=== PATIENT | male | born 1995 | race American Indian/Alaskan Native ===

== ENCOUNTER 2018-01-11 21:19 | Emergency (ER) | payer SELFPAY ==
[2018-01-11] MEDS ORDERED: MOTRIN PO ONE ×2 (21:47→21:48)
[2018-01-11 22:03] LABS: BUN/Creatinine Ratio 13; Blood Urea Nitrogen 9 mg/dL (9-20); Calcium 8.9 mg/dL (8.4-10.2); Hemolysis Index 14
[2018-01-11 22:07] LABS: Hematocrit 41.8 % (35.5-45.6); Hemoglobin 14.2 gm/dl (11.8-15.2); Mean Corpuscular HGB Conc 34 % (32-34); Mean Corpuscular Hemoglobin 33 pg (28-32); Mean Corpuscular Volume 96 fl (84-94); Platelet Count 283 K/mm3 (140-440); Red Blood Count 4.36 M/mm3 (3.65-5.03); Red Cell Distribution Width 12.3 % (13.2-15.2)
[2018-01-11 22:20] LABS: Bilirubin,Urine NEG (Negative); Blood,Urine NEG (Negative); Color,Urine Yellow (Yellow); Mucus,Urine 2+ /HPF
--- NOTE | 2018-01-11 23:37 | Ultrasound Report ---
FINAL REPORT PROCEDURE: US TESTICULAR DOPPLER COMP TECHNIQUE: Real-time gonzalez-scale and color flow Doppler sonography in multiple planes of the scrotum, testicles, and epididymes was performed. Velocity spectral waveform analysis Doppler imaging of the arterial inflow and venous outflow of the testicles was performed with image documentation. CPT 27577 and 42891 HISTORY: swelling and severe pain COMPARISON: No prior studies are available for comparison. FINDINGS: RIGHT TESTICLE: Size: 4.4 x 2.2 x 3.3 cm . Appearance: Normal size and echotexture. . Doppler flow: Within normal limits Right epididymis: Normal size and echotexture . Hydrocele: None . LEFT TESTICLE Size: 4.9 x 3.3 x 3.3 cm . Appearance: An irregular mixed echoic predominantly hypoechoic lesion is noted involving the inferior portion left testicle measuring 2.8 x 3.4 x 3 centimeters. This lesion fails to demonstrate any color flow on Doppler images. The remaining testis is demonstrates mildly increased vascularity. . Leftepididymis: Normal size and echotexture . Hydrocele: None . IMPRESSION: A hypovascular/avascular lesion of the inferior left testis measures 2.8 x 3.4 x 3 centimeters.A testicular tumor cannot be excluded. Differential diagnosis includes intratesticular hematoma. Remaining left testis demonstrates increased vascularity. Epididymal orchitis cannot be excluded.
--- NOTE | 2018-01-12 00:25 | Emergency Department Report ---
HPI - General Chief Complaint: Urogenital-Male Time Seen by Provider: 01/11/18 23:55 - HPI HPI: This is a 22 year-old male presents to the emergency department via EMS from home with a complaint of low back pains and left testicular pain. The back pain started about one week ago and was intermittent. Over the past 1-2 days the patient developed the left testicular pain and worsening of the back pain. He says it feels like someone has been kicking him in the left testicle. Today he did a self examination and felt like the left testicle was hard compared to the right. He took a taxi home from where he was at and call for an embolus. He denies any problems with urination or bowel movements. He denies any fever, nausea, vomiting, numbness or paresthesias or any neurological deficits. He has been taking some Erik aspirin for his symptoms with some temporary relief. ED Past Medical Hx - Past Medical History Previous Medical History?: No - Surgical History Past Surgical History?: No - Social History Smoking Status: Never Smoker Substance Use Type: None - Medications Home Medications: Home Medications Medication Instructions Recorded Confirmed Last Taken Type Ciprofloxacin HCl [Cipro] 500 mg PO BID #20 tablet 01/12/18 Unknown Rx HYDROcodone/APAP 5-325 [Lane 1 each PO Q6HR PRN #10 tablet 01/12/18 Unknown Rx 5/325] No Known Home Medications [No 01/12/18 01/12/18 Unknown History Reported Home Medications] ED Review of Systems ROS: Stated complaint: LOWER BACK PAIN/SWOLLEN LT TESTICLE Other details as noted in HPI Comment: All other systems reviewed and negative Constitutional: denies: chills, fever Eyes: denies: eye pain, eye discharge, vision change ENT: denies: ear pain, throat pain Respiratory: denies: cough, shortness of breath, wheezing Cardiovascular: denies: chest pain, palpitations Gastrointestinal: denies: abdominal pain, nausea, diarrhea Genitourinary: testicular pain. denies: dysuria Musculoskeletal: back pain. denies: arthralgia Skin: denies: rash, lesions Neurological: denies: headache, weakness Physical Exam - Physical Exam Vital Signs: Vital Signs 01/11/18 01/11/18 21:35 21:48 Temperature 98.6 F Pulse Rate 62 Respiratory 18 20 Rate Blood Pressure 158/86 O2 Sat by Pulse 100 Oximetry Physical Exam: GENERAL: Well nourished. Well developed. HENT: Normocephalic. Atraumatic. Patient has moist mucous membranes. EYES: Extraocular motions are intact. NECK: Supple. Trachea is midline. CHEST/LUNGS: Clear to auscultation. There is no respiratory distress noted. HEART/CARDIOVASCULAR: Regular. There is moderate tachycardia. There is no murmur. ABDOMEN: Abdomen is soft, nontender. Patient has normal bowel sounds. There is no abdominal distention. SKIN: Skin is warm and dry. NEURO: Patient is awake, alert and oriented. The patient is cooperative. No focal, motor or sensory deficits. MUSCULOSKELETAL: There is no tenderness or deformity. No restriction to range of motion. There is no evidence of acute injury. BACK: There is both midline and bilateral paraspinal lower lumbar tenderness but no step-off or deformity. : There is some mild tenderness to palpation of the left testicle. The left testicle appears more firm in comparison to the right. No palpable or visible inguinal hernias. ED Course Vital Signs 01/11/18 01/11/18 21:35 21:48 Temperature 98.6 F Pulse Rate 62 Respiratory 18 20 Rate Blood Pressure 158/86 O2 Sat by Pulse 100 Oximetry ED Medical Decision Making - Lab Data Result diagrams: 01/11/18 21:41 01/11/18 21:41 - Radiology Data Radiology results: report reviewed, image reviewed interpreted by me: X-ray of the lumbar spine does not show any fracture, subluxation, bony mass or any other acute process. PROCEDURE: US TESTICULAR DOPPLER COMP TECHNIQUE: Real-time gonzalez-scale and color flow Doppler sonography in multiple planes of the scrotum, testicles, and epididymes was performed. Velocity spectral waveform analysis Doppler imaging of the arterial inflow and venous outflow of the testicles was performed with image documentation. CPT 23112 and 78479 HISTORY: swelling and severe pain COMPARISON: No prior studies are available for comparison. FINDINGS: RIGHT TESTICLE: Size: 4.4 x 2.2 x 3.3 cm . Appearance: Normal size and echotexture. . Doppler flow: Within normal limits Right epididymis: Normal size and echotexture . Hydrocele: None . LEFT TESTICLE Size: 4.9 x 3.3 x 3.3 cm . Appearance: An irregular mixed echoic predominantly hypoechoic lesion is noted involving the inferior portion left testicle measuring 2.8 x 3.4 x 3 centimeters. This lesion fails to demonstrate any color flow on Doppler images. The remaining testis is demonstrates mildly increased vascularity. . Leftepididymis: Normal size and echotexture . Hydrocele: None . IMPRESSION: A hypovascular/avascular lesion of the inferior left testis measures 2.8 x 3.4 x 3 centimeters.A testicular tumor cannot be excluded. Differential diagnosis includes intratesticular hematoma. Remaining left testis demonstrates increased vascularity. Epididymal orchitis cannot be excluded. Transcribed By: [facility] [place] Dictated By: KATHARINA MEAD Electronically Authenticated By: KATHARINA MEAD Signed Date/Time: 01/11/18 5580 - Medical Decision Making Patient presents with a one-week history of some low back pain and a few days of left testicular pain. On examination he does not have any focal, motor or sensory deficits. The pain is both midline and bilateral paraspinal and there is no step-off deformity. Lumbar x-ray was done that does not show any fracture , subluxation, bony mass or any other acute process. On the testicular exam, I do not feel any obvious mass but the left testicle does feel more firm when compared to the right. An ultrasound was done of the testicles does not show any signs of any torsion. However there is a hypovascular/avascular lesion to the inferior portion of the left testicle that is about 3 cm and a testicular tumor cannot be excluded. The remaining portion of the left testes demonstrate increased vascularity with the possibility of epididymal orchitis. I spent a long time discussing all of the imaging results with the patient. He will get a prescription for antibiotics and pain medication. He has been given a referral for a local urologist and understands the importance of following up in the next few days. Labs have been unremarkable. Vital signs stable throughout his ED course. - Differential Diagnosis testicular torsion, orchitis, epididymitis, malignancy, UTI Critical Care Time: No Critical care attestation.: If time is entered above; I have spent that time in minutes in the direct care of this critically ill patient, excluding procedure time. ED Disposition Clinical Impression: Testicular lesion, Epididymitis Back pain Qualifiers: Back pain location: low back pain Chronicity: unspecified Back pain laterality : bilateral Sciatica presence: without sciatica Qualified Code(s): M54.5 - Low back pain Disposition: - TO HOME OR SELFCARE Is pt being admited?: No Condition: Stable Instructions: Epididymitis (ED), Testicle Pain (ED), Back Pain (ED) Additional Instructions: Please follow up with a primary care physician. I have given you a referral for a local urologist, Dr. Nye, to follow up regarding your testicular pain, the epididymitis/orchitis, and the ultrasound finding of a concern for a testicular lesion. Please follow-up as soon as possible. Return to the emergency Department with any worsening of your symptoms or any acute distress. You have been prescribed a medication that is sedating and therefore should not be taken prior to driving, working, and responsible for children and in no way should be mixed with alcohol of any quantity. Prescriptions: Ciprofloxacin HCl [Cipro] 500 mg PO BID #20 tablet HYDROcodone/APAP 5-325 [Lane 5/325] 1 each PO Q6HR PRN #10 tablet PRN Reason: Pain Referrals: PRIMARY CARE, [Primary Care Provider] - 2-3 Days TERESA NYE MD [Staff Physician] - 2-3 Days Time of Disposition: 00:55
--- NOTE | 2018-01-12 00:42 | XRay Report ---
FINAL REPORT EXAM: XR SPINE LUMBOSACRAL 2-3V HISTORY: back pain TECHNIQUE: Three views of the lumbar spine were obtained. FINDINGS: There is very mild dextroscoliosis. The disc heights and alignment appear normal. There is no evidence of fracture. The SI joints appear normal. The soft tissues are well maintained. IMPRESSION: Very mild dextroscoliosis. Otherwise unremarkable exam.
[2018-01-12 01:11] VITALS: BP 122/74
== END 2018-01-12 01:13 | disposition home or self-care (01) ==
LOC: ED 21:19
DX: L98.8 Other specified disorders of the skin and subcutaneous tissue (principal); M54.5 Low back pain
CPT/HCPCS: 36415; 72100; 80048; 81001; 85027; 93975